=== PATIENT | female | born 1965 | race Caucasian/White ===

== ENCOUNTER → 2022-08-03 11:41 | Outpatient (BNVA) | payer MEDICAID, SELFPAY | PROVIDERS: PCP Pediatrics; Visit Provider Internal Medicine | DX: R70.0 Elevated erythrocyte sedimentation rate (principal); M25.50 Pain in unspecified joint; M54.50 Low back pain, unspecified; Z11.59 Encounter for screening for other viral diseases; Z11.1 Encounter for screening for respiratory tuberculosis | CPT/HCPCS: 36415; 73120; 73620; 80053; 81003; 82550; 83735; 85025; 85651; 86140; 86160; 86162; 86200; 86235; 86255; 86376; 86431; 86480; 86704; 86803; 87340; 99204 ==

== ENCOUNTER → 2022-08-25 13:59 | Outpatient (BNVA) | payer MEDICAID, SELFPAY | PROVIDERS: PCP Pediatrics; Visit Provider Internal Medicine | DX: R70.0 Elevated erythrocyte sedimentation rate (principal); E03.9 Hypothyroidism, unspecified; M25.50 Pain in unspecified joint | CPT/HCPCS: 99213 ==

== ENCOUNTER → 2022-10-20 10:14 | Outpatient (BNVA) | payer MEDICAID, SELFPAY | PROVIDERS: PCP Pediatrics; Referring Provider Internal Medicine; Visit Provider Internal Medicine | DX: E03.9 Hypothyroidism, unspecified (principal); E23.6 Other disorders of pituitary gland; R63.5 Abnormal weight gain; Z68.43 Body mass index [BMI] 50.0-59.9, adult | CPT/HCPCS: 99204 ==

== ENCOUNTER → 2022-11-25 10:59 | Outpatient (BNVA) | payer MEDICAID, SELFPAY | PROVIDERS: PCP Pediatrics; Visit Provider Internal Medicine | DX: M25.50 Pain in unspecified joint (principal); R70.0 Elevated erythrocyte sedimentation rate; Z79.52 Long term (current) use of systemic steroids | CPT/HCPCS: 36415; 80053; 81003; 83516; 85025; 85651; 86140; 99213 ==

== ENCOUNTER 2022-12-03 15:46 | Outpatient (CLI) | payer MEDICAID, SELFPAY ==
--- NOTE | 2022-12-03 16:00 | MR_ITS ---
WS: [id number] MRI BRAIN WITHOUT AND WITH CONTRAST, ATTENTION DIRECTED TO THE PITUITARY GLAND HISTORY: hx of empty sella COMPARISON: None available. TECHNIQUE: Diffusion-weighted imaging, axial T2 sequence, and postcontrast images in 3 planes are per formed. High-resolution coronal and sagittal imaging performed through the pituitary region with and without intravenous gadolinium. MultiHance 20 mL IV. Very small pituitary gland in the floor of the sella turcica. Height of the pituitary is 3 mm. No enh ancing masses. No microadenoma or macroadenoma. Normal postoperative appearance of the pituitary glan d. No deviation of the infundibulum or optic chiasm. Normal diffusion-weighted imaging. No prior infarct or significant small vessel ischemic disease. Musa tricles are normal size. No hemorrhage. Venous angioma RIGHT cerebellum. No additional enhancing masses or vascular malformations otherwise. Normal appearance of the dural venous sinuses and [place]. Small mucous retention cyst in the floor the LEFT maxillary sinus. No mastoid air cell disease. MR/MR pituitary wo/w con* [id number] IMPRESSION: 1. Small pituitary gland the floor the sella turcica measures 3 mm. 2. No evidence for pituitary macroadenoma or microadenoma. 3. No infarct or hemorrhage. No significant small vessel ischemic disease.
[2022-12-03] MEDS: gadobenate dimeglumine 20 mL vial IV (16:47)
== END 2022-12-03 15:47 | disposition home or self-care (01) ==
PROVIDERS: PCP Pediatrics; Visit Provider Internal Medicine
DX: E23.6 Other disorders of pituitary gland (principal)
CPT/HCPCS: 70553; A9577

== ENCOUNTER → 2023-03-01 10:02 | Outpatient (BNVA) | payer MEDICAID, SELFPAY | PROVIDERS: PCP Pediatrics; Visit Provider Internal Medicine | DX: R70.0 Elevated erythrocyte sedimentation rate (principal); M25.50 Pain in unspecified joint; Z79.899 Other long term (current) drug therapy | CPT/HCPCS: 36415; 80053; 83036; 85025; 85651; 86140; 99214 ==

== ENCOUNTER → 2023-05-27 11:37 | Outpatient (BNVA) | payer MEDICAID, SELFPAY | PROVIDERS: PCP Pediatrics; Visit Provider Internal Medicine | DX: E03.9 Hypothyroidism, unspecified (principal); E23.6 Other disorders of pituitary gland; R63.5 Abnormal weight gain; Z79.890 Hormone replacement therapy; Z68.42 Body mass index [BMI] 45.0-49.9, adult; L65.9 Nonscarring hair loss, unspecified | CPT/HCPCS: 80061; 82533; 84146; 84305; 84439; 84443; 99214 ==

== ENCOUNTER → 2023-06-01 14:23 | Outpatient (BNVA) | payer MEDICAID, SELFPAY | PROVIDERS: PCP Pediatrics; Visit Provider Internal Medicine | DX: M25.50 Pain in unspecified joint (principal); R70.0 Elevated erythrocyte sedimentation rate | CPT/HCPCS: 36415; 80053; 83520; 85025; 85651; 86140; 99214 ==

== ENCOUNTER → 2023-08-19 08:46 | Outpatient (BNVA) | payer MEDICAID, SELFPAY | PROVIDERS: PCP Pediatrics; Visit Provider Internal Medicine | DX: R70.0 Elevated erythrocyte sedimentation rate (principal); M25.50 Pain in unspecified joint | CPT/HCPCS: 99214 ==

== ENCOUNTER → 2023-12-06 09:30 | Outpatient (BNVA) | payer MEDICAID, SELFPAY | PROVIDERS: PCP Pediatrics; Visit Provider Internal Medicine | DX: R70.0 Elevated erythrocyte sedimentation rate (principal); M25.50 Pain in unspecified joint; D72.819 Decreased white blood cell count, unspecified | CPT/HCPCS: 99214 ==

== ENCOUNTER → 2024-09-04 15:15 | Outpatient (BNVA) | payer MEDICAID, SELFPAY | PROVIDERS: PCP Pediatrics; Visit Provider Internal Medicine Rheumatology | DX: Z79.899 Other long term (current) drug therapy (principal) | CPT/HCPCS: 36415; 80076; 82565; 83880; 85025; 85651; 86140 ==

== ENCOUNTER → 2025-01-28 12:29 | Outpatient (BNVA) | payer MEDICAID, SELFPAY | PROVIDERS: PCP Pediatrics; Visit Provider Internal Medicine Rheumatology | DX: Z79.899 Other long term (current) drug therapy (principal); M06.041 Rheumatoid arthritis without rheumatoid factor, right hand; M06.042 Rheumatoid arthritis without rheumatoid factor, left hand | CPT/HCPCS: 80076; 82306; 82565; 85025; 85651; 86140 ==

== ENCOUNTER 2025-02-14 10:54 | Outpatient (CLI) | payer MEDICAID, SELFPAY ==
[2025-02-14 11:49] LABS: Alanine Aminotransferase 72 U/L (0-33); Albumin Level 3.8 g/dL (3.5-5.2); Alkaline Phosphatase 86 U/L (35-105); Total Bilirubin 0.9 mg/dL (0.15-1.2); Total Protein 6.8 g/dL (6.6-8.7)
[2025-02-14 12:11] LABS: Aspartate Amino Transferase 55 U/L (0-32)
== END 2025-02-14 10:55 | disposition home or self-care (01) ==
PROVIDERS: PCP Pediatrics; Visit Provider Internal Medicine Rheumatology
DX: Z79.899 Other long term (current) drug therapy (principal); M06.041 Rheumatoid arthritis without rheumatoid factor, right hand; M06.042 Rheumatoid arthritis without rheumatoid factor, left hand
CPT/HCPCS: 36415; 80076

== ENCOUNTER 2025-03-18 11:32 | Outpatient (CLI) | payer MEDICAID, SELFPAY ==
[2025-03-18 12:38] LABS: Alanine Aminotransferase 110 U/L (0-33); Alkaline Phosphatase 75 U/L (35-105); Aspartate Amino Transferase 118 U/L (0-32); Globulin 2.8 g/dL (1.3-4.6); Total Bilirubin 0.8 mg/dL (0.15-1.2); Total Protein 6.8 g/dL (6.6-8.7)
== END 2025-03-18 11:33 | disposition home or self-care (01) ==
LOC: LAB 11:33
PROVIDERS: PCP Pediatrics; Visit Provider Internal Medicine Rheumatology
DX: R74.8 Abnormal levels of other serum enzymes (principal)
CPT/HCPCS: 36415; 80076

== ENCOUNTER 2025-04-30 11:46 | Outpatient (CLI) | payer MEDICAID, SELFPAY ==
[2025-04-30 12:52] LABS: Basophils # 0.1 10^3/uL (0.0-0.1); Basophils % 1.3 %; Eosinophils # 0.1 10^3/uL (0.0-0.8); Eosinophils % 3.4 %; Hematocrit 47.2 % (36-47); Lymphocytes # 1.3 10^3/uL (0.8-4.8); Lymphocytes % 35.4 %; Mean Corpuscular Hemoglobin 31.2 pg (27-33); Mean Corpuscular Volume 97.5 fl (85-98); Mean Platelet Volume 12.7 fL (7.4-10.4); Monocytes # 0.6 10^3/uL (0.2-0.9); Monocytes % 16.7 %; Neutrophils # 1.62 10^3/uL (1.8-7.7); Neutrophils % 42.9 %; Nucleated Red Blood Cells % 0 %; Platelet Count 148 10^3/cmm (157-399); Red Blood Count 4.84 10^6/uL (3.85-5.65); Red Cell Distribution Width 15.3 % (12.1-15.1); White Blood Count 3.78 10^3/uL (3.29-11.43)
[2025-04-30 12:58] LABS: Erythrocyte Sedimentation Rate 11 mm/hr (0-15)
[2025-04-30 13:11] LABS: Alanine Aminotransferase 124 U/L (0-33); Albumin Level 3.8 g/dL (3.5-5.2); Alkaline Phosphatase 67 U/L (35-105); Aspartate Amino Transferase 151 U/L (0-32); Bilirubin Direct 0.27 mg/dL (0.00-0.30); C Reactive Protein 4.7 mg/L (0.0-4.9); Globulin 2.6 g/dL (1.3-4.6); Glomerular Filtration Rate 102.3 mL/min (90-130); Total Bilirubin 0.6 mg/dL (0.15-1.2); Total Protein 6.4 g/dL (6.6-8.7)
== END 2025-04-30 11:47 | disposition home or self-care (01) ==
PROVIDERS: PCP Pediatrics; Visit Provider Internal Medicine Rheumatology
DX: Z79.899 Other long term (current) drug therapy (principal); M06.041 Rheumatoid arthritis without rheumatoid factor, right hand; M06.042 Rheumatoid arthritis without rheumatoid factor, left hand
CPT/HCPCS: 36415; 80076; 82565; 85025; 85651; 86140

== ENCOUNTER → 2025-05-20 11:17 | Outpatient (BNVA) | payer MEDICAID, SELFPAY | PROVIDERS: PCP Pediatrics; Visit Provider Internal Medicine Rheumatology | DX: M06.041 Rheumatoid arthritis without rheumatoid factor, right hand (principal); M06.042 Rheumatoid arthritis without rheumatoid factor, left hand; Z79.899 Other long term (current) drug therapy; Z71.85 Encounter for immunization safety counseling; M47.816 Spondylosis without myelopathy or radiculopathy, lumbar region | CPT/HCPCS: 99214 ==

== ENCOUNTER → 2025-09-30 11:27 | Outpatient (BNVA) | payer MEDICAID, SELFPAY | PROVIDERS: PCP Pediatrics; Visit Provider Internal Medicine Rheumatology | DX: M06.041 Rheumatoid arthritis without rheumatoid factor, right hand (principal); M06.042 Rheumatoid arthritis without rheumatoid factor, left hand; Z79.899 Other long term (current) drug therapy; Z71.85 Encounter for immunization safety counseling; M47.816 Spondylosis without myelopathy or radiculopathy, lumbar region | CPT/HCPCS: 99214 ==